=== PATIENT | male | born 1955 | race Hispanic/Latino ===

== ENCOUNTER → 2024-12-26 | Outpatient (CLI) | payer OTHER ==
--- NOTE | 2024-12-27 02:38 | HMCIMG ---
STUDY: X-RAY OF THE LUMBAR SPINE, 3 VIEWS HISTORY: Low back pain, unspecified. TECHNIQUE: AP, lateral, and L5???S1 spot views of the lumbar spine are submitted for interpretation. COMPARISON: None provided. FINDINGS: Bones and joints: Mild diffuse osteopenia is present. Lumbar vertebral body heights are preserved without radiographic evidence of acute fracture or compression deformity. There are degenerative changes characterized by multilevel anterior and marginal osteophytes and endplate sclerosis, with reduction in the intervertebral disc height at L4???L5. Mild retrolisthesis of L4 on L5 is noted. Multilevel facet joint hypertrophy is present. No destructive lytic or sclerotic osseous lesion is identified. Soft tissues: Paraspinal soft tissues are unremarkable. Mild aortic wall calcification is noted, compatible with atherosclerotic change. No abnormal soft tissue calcification or radiopaque foreign body is seen. IMPRESSION: * Lumbar spondylosis with disc height loss at L4???L5, mild retrolisthesis of L4 on L5, and multilevel facet arthropathy. * Mild osteopenia. * Mild aortic atherosclerotic calcification. * MRI of the lumbar spine is suggested for further evaluation of disc pathology and neural element involvement, given the patient???s low back pain. /[place]
--- NOTE | 2024-12-27 02:38 | HMCIMG ---
STUDY: X-RAY OF THE THORACIC SPINE, 2 VIEWS HISTORY: Pain in the thoracic spine. TECHNIQUE: AP and lateral views of the thoracic spine are submitted for interpretation. COMPARISON: None provided. FINDINGS: Bones and joints: Thoracic vertebral body heights are preserved without radiographic evidence of acute fracture or compression deformity. There are degenerative changes characterized by multilevel endplate osteophytic spurring and mild reduction in intervertebral disc heights at multiple thoracic levels. Thoracic alignment is maintained without scoliotic or kyphotic deformity beyond the expected physiologic kyphosis. No destructive lytic or sclerotic osseous lesion is identified. Soft tissues: Paraspinal soft tissues appear unremarkable. No abnormal soft tissue calcification or radiopaque foreign body is seen. IMPRESSION: * Multilevel thoracic spondylosis with endplate osteophyte formation and mild disc height loss. * No radiographic evidence of acute thoracic vertebral fracture or significant deformity. /[place]
== END | disposition home or self-care (01) ==
LOC: RAH 09:24
PROVIDERS: ATTEND Internal Medicine
DX: M47.815 Spondylosis without myelopathy or radiculopathy, thoracolumbar region (principal); M43.16 Spondylolisthesis, lumbar region; M54.6 Pain in thoracic spine; M54.50 Low back pain, unspecified; M85.88 Other specified disorders of bone density and structure, other site; I70.0 Atherosclerosis of aorta; M25.78 Osteophyte, vertebrae; M46.06 Spinal enthesopathy, lumbar region
CPT/HCPCS: 72070; 72100